=== PATIENT | male | born 1970 | race Caucasian/White ===

== ENCOUNTER 2021-10-05 12:14 | Outpatient (REF) | payer MEDICARE, SELFPAY ==
[2021-10-05 12:35] LABS: MANUAL DIFF FLAG NO
[2021-10-05 13:03] LABS: Basophils Absolute Auto 0.1 X10*3/uL (0.0-0.2); Basophils Percent Auto 0.9 % (0-2); Eosinophils Absolute Auto 0.2 X10*3/uL (0.0-0.4); Eosinophils Percent Auto 2.3 % (0-4); Hematocrit 45.4 % (42.0-52.0); Hemoglobin 15.2 g/dl (14.0-18.0); Imm Gran Abs Auto 0.04 X10*3/uL (0.00-0.03); Imm Gran Pct Auto 0.5 % (0.0-0.4); Lymphocytes Absolute Auto 2.1 X10*3/uL (1.2-4.9); Lymphocytes Percent Auto 23.6 % (20-40); Mean Corpuscular HGB Conc 33.5 g/dl (31.0-36.0); Mean Corpuscular Hemoglobin 27.4 pg (27.0-33.0); Mean Corpuscular Volume 81.9 fL (80.0-98.0); Mean Platelet Volume 8.5 fL (9.4-12.4); Monocytes Percent Auto 11.8 % (2-11); Neutrophils Absolute Auto 5.3 x10*3/uL (2.0-8.3); Neutrophils Percent Auto 60.9 % (45-73); Platelet Count 320 X10*3/uL (160-400); Red Blood Count 5.54 X10*6/uL (4.60-5.80); Red Cell Distribution Width 14.6 % (11.0-16.0); White Blood Count 8.7 X10*3/uL (4.8-10.8)
[2021-10-05 13:41] LABS: Alanine Aminotransferase 32 U/L (0-40); Albumin Level 4.4 g/dL (3.5-5.0); Alkaline Phosphatase 94 U/L (39-117); Anion Gap 14 (12-20); Aspartate Amino Transferase 24 U/L (5-37); Bilirubin Total 0.6 mg/dL (0.0-1.0); Blood Urea Nitrogen 14 mg/dL (9-16); Calcium 10.1 mg/dL (8.4-10.2); Carbon Dioxide 25 mmol/L (22-29); Chloride 100 mmol/L (96-108); Cholesterol 212 mg/dL; Estimated Glomerular Filt Rate > 60; Glucose Random 115 mg/dL (60-115); HDL Cholesterol 36 mg/dL; LDL Cholesterol Calculated 144 mg/dl; Potassium 4.7 mmol/L (3.3-5.1); Sodium 134 mmol/L (135-145); Total Protein 8.4 g/dL (6.5-8.0); Triglycerides 160 mg/dL
[2021-10-05 14:04] LABS: Free T4 (Free Thyroxine) 1.17 ng/dL (0.71-1.85)
[2021-10-06 12:11] LABS: Free Prostate Spec Ag 0.1 ng/mL; Percent Free Prostate Spec Ag 50 % (calc) (>25); Prostate Specific Ag Total 0.2 ng/mL (< OR = 4.0)
== END 2021-10-05 12:15 | disposition home or self-care (01) ==
LOC: HO.LAB 12:14
PROVIDERS: PCP Internal Medicine; Visit Provider Internal Medicine
DX: I25.10 Atherosclerotic heart disease of native coronary artery without angina pectoris (principal); I10 Essential (primary) hypertension; E78.00 Pure hypercholesterolemia, unspecified; M54.9 Dorsalgia, unspecified; R00.0 Tachycardia, unspecified; Z12.5 Encounter for screening for malignant neoplasm of prostate
CPT/HCPCS: 36415; 80053; 80061; 84154; 84439; 84443; 85025

== ENCOUNTER 2022-01-18 12:19 | Outpatient (REF) | payer MEDICARE, SELFPAY ==
[2022-01-18 13:53] LABS: Alanine Aminotransferase 23 U/L (0-40); Albumin Level 4.1 g/dL (3.5-5.0); Alkaline Phosphatase 112 U/L (39-117); Anion Gap 14 (12-20); Aspartate Amino Transferase 24 U/L (5-37); Bilirubin Total 0.6 mg/dL (0.0-1.0); Blood Urea Nitrogen 11 mg/dL (9-16); Calcium 9.8 mg/dL (8.4-10.2); Carbon Dioxide 24 mmol/L (22-29); Chloride 100 mmol/L (96-108); Cholesterol 160 mg/dL; Estimated Glomerular Filt Rate > 60; Glucose Fasting 120 mg/dL (60-99); HDL Cholesterol 35 mg/dL; LDL Cholesterol Calculated 98 mg/dl; Potassium 5.2 mmol/L (3.3-5.1); Sodium 133 mmol/L (135-145); Total Protein 8.2 g/dL (6.5-8.0); Triglycerides 137 mg/dL
== END 2022-01-18 12:20 | disposition home or self-care (01) ==
LOC: HO.LAB 12:19
PROVIDERS: PCP Internal Medicine; Visit Provider Internal Medicine
DX: I10 Essential (primary) hypertension (principal); I25.10 Atherosclerotic heart disease of native coronary artery without angina pectoris; E78.00 Pure hypercholesterolemia, unspecified
CPT/HCPCS: 36415; 80053; 80061

== ENCOUNTER 2022-04-04 12:03 | Outpatient (REF) | payer MEDICARE, SELFPAY ==
[2022-04-04 13:40] LABS: MANUAL DIFF FLAG NO
[2022-04-04 13:47] LABS: Basophils Absolute Auto 0.1 X10*3/uL (0.0-0.2); Basophils Percent Auto 0.8 % (0-2); Eosinophils Absolute Auto 0.1 X10*3/uL (0.0-0.4); Eosinophils Percent Auto 0.8 % (0-4); Hematocrit 46.7 % (42.0-52.0); Hemoglobin 15.2 g/dl (14.0-18.0); Imm Gran Abs Auto 0.03 X10*3/uL (0.00-0.03); Imm Gran Pct Auto 0.4 % (0.0-0.4); Lymphocytes Absolute Auto 1.6 X10*3/uL (1.2-4.9); Lymphocytes Percent Auto 22.8 % (20-40); Mean Corpuscular HGB Conc 32.5 g/dl (31.0-36.0); Mean Corpuscular Hemoglobin 26.8 pg (27.0-33.0); Mean Corpuscular Volume 82.2 fL (80.0-98.0); Monocytes Absolute Auto 0.7 X10*3/uL (0.1-1.2); Monocytes Percent Auto 10.3 % (2-11); Neutrophils Absolute Auto 4.7 x10*3/uL (2.0-8.3); Neutrophils Percent Auto 64.9 % (45-73); Platelet Count 297 X10*3/uL (160-400); Red Blood Count 5.68 X10*6/uL (4.60-5.80); Red Cell Distribution Width 14.4 % (11.0-16.0); White Blood Count 7.2 X10*3/uL (4.8-10.8)
[2022-04-04 14:10] LABS: Estimated Average Glucose 128 mg/dL; Hemoglobin A1c % 6.1 %
[2022-04-04 14:29] LABS: Alanine Aminotransferase 19 U/L (0-40); Albumin Level 4.4 g/dL (3.5-5.0); Alkaline Phosphatase 120 U/L (39-117); Anion Gap 17 (12-20); Aspartate Amino Transferase 18 U/L (5-37); Bilirubin Total 0.4 mg/dL (0.0-1.0); Blood Urea Nitrogen 9 mg/dL (9-16); C Reactive Protein 2.43 mg/dL (< or = 0.50); Calcium 9.7 mg/dL (8.4-10.2); Carbon Dioxide 24 mmol/L (22-29); Chloride 100 mmol/L (96-108); Estimated Glomerular Filt Rate > 60; Glucose Random 111 mg/dL (60-115); Lipase 50 U/L (8-78); Potassium 5.7 mmol/L (3.3-5.1); Sodium 135 mmol/L (135-145); Total Protein 8.4 g/dL (6.5-8.0)
== END 2022-04-04 12:04 | disposition home or self-care (01) ==
LOC: HO.10HDL 12:03
PROVIDERS: Visit Provider Internal Medicine
DX: R10.9 Unspecified abdominal pain (principal); K21.9 Gastro-esophageal reflux disease without esophagitis; R73.03 Prediabetes; I10 Essential (primary) hypertension; J44.9 Chronic obstructive pulmonary disease, unspecified; I25.10 Atherosclerotic heart disease of native coronary artery without angina pectoris
CPT/HCPCS: 36415; 80053; 82550; 83036; 83690; 85025; 86140

== ENCOUNTER 2022-04-06 11:05 | Outpatient (REF) | payer MEDICARE, SELFPAY ==
--- NOTE | ~2022-04-06 | FL_ITS ---
EXAMINATION: XR FLUOROSCOPY UPPER GI WITH AIR CLINICAL INFORMATION: Nausea, vomiting for 2 months. COMPARISON: None TECHNIQUE: Routine upper GI air-contrast study was performed in upright and lying position. FINDINGS: Following oral administration of thick barium and effervescent granules there is normal propagation of bolus from the oral cavity through the pharynx, esophagus into stomach without any evidence of obstruction, narrowing or stricture. The course, caliber and peristalsis of the stomach, duodenal bulb and the sweep is normal. The mucosal pattern of the stomach and the duodenum is normal. There is moderate gastroesophageal reflux into the midesophagus. Incidental finding of disc prosthesis at L4-L5 stabilized with bilateral L4 and L5 pedicular screws and interconnecting rods. The inferior ends of the rods and the L5 pedicle screws are not completely visualized on these images. FLUOROSCOPY TIME: 2.1 minutes DOSE AREA PRODUCT: 41.450 uGy-m2 (microgray-meter squared) FL/FL upper GI w air IMPRESSION: Moderate gastroesophageal reflux into the midesophagus without hiatal hernia.
== END 2022-04-06 11:06 | disposition home or self-care (01) ==
LOC: HO.XRAY 11:05
PROVIDERS: PCP Internal Medicine; Visit Provider Internal Medicine
DX: K21.9 Gastro-esophageal reflux disease without esophagitis (principal); R10.9 Unspecified abdominal pain
CPT/HCPCS: 74246

== ENCOUNTER 2022-08-30 12:04 | Outpatient (REF) | payer MEDICARE, SELFPAY ==
[2022-08-30 13:32] LABS: MANUAL DIFF FLAG NO
[2022-08-30 14:09] LABS: Basophils Absolute Auto 0.1 X10*3/uL (0.0-0.2); Basophils Percent Auto 0.9 % (0-2); Eosinophils Percent Auto 0.5 % (0-4); Hematocrit 45.7 % (42.0-52.0); Hemoglobin 15.1 g/dl (14.0-18.0); Imm Gran Abs Auto 0.02 X10*3/uL (0.00-0.03); Imm Gran Pct Auto 0.3 % (0.0-0.4); Lymphocytes Absolute Auto 1.5 X10*3/uL (1.2-4.9); Lymphocytes Percent Auto 22.4 % (20-40); Mean Corpuscular Hemoglobin 26.5 pg (27.0-33.0); Mean Corpuscular Volume 80.3 fL (80.0-98.0); Mean Platelet Volume 8.8 fL (9.4-12.4); Monocytes Absolute Auto 0.5 X10*3/uL (0.1-1.2); Monocytes Percent Auto 7.7 % (2-11); Neutrophils Absolute Auto 4.5 x10*3/uL (2.0-8.3); Neutrophils Percent Auto 68.2 % (45-73); Platelet Count 289 X10*3/uL (160-400); Red Blood Count 5.69 X10*6/uL (4.60-5.80); Red Cell Distribution Width 14.9 % (11.0-16.0); White Blood Count 6.5 X10*3/uL (4.8-10.8)
[2022-08-30 14:31] LABS: Alanine Aminotransferase 16 U/L (0-40); Albumin Level 4.2 g/dL (3.5-5.0); Alkaline Phosphatase 143 U/L (39-117); Anion Gap 16 (12-20); Aspartate Amino Transferase 18 U/L (5-37); Bilirubin Total 0.4 mg/dL (0.0-1.0); Blood Urea Nitrogen 9 mg/dL (9-16); Calcium 9.6 mg/dL (8.4-10.2); Carbon Dioxide 25 mmol/L (22-29); Chloride 101 mmol/L (96-108); Estimated Glomerular Filt Rate > 60; Glucose Random 115 mg/dL (60-115); Lipase 27 U/L (8-78); Potassium 4.5 mmol/L (3.3-5.1); Sodium 137 mmol/L (135-145)
[2022-08-30 14:38] LABS: Troponin-I High Sensitivity < 3.5 ng/L (<3.5-35.0)
[2022-09-01 13:23] LABS: CRP High Sensitivity >10.0 mg/L
== END 2022-08-30 12:05 | disposition home or self-care (01) ==
LOC: HO.10HDL 12:04
PROVIDERS: Visit Provider Internal Medicine
DX: I25.10 Atherosclerotic heart disease of native coronary artery without angina pectoris (principal); K21.9 Gastro-esophageal reflux disease without esophagitis; I10 Essential (primary) hypertension; J44.9 Chronic obstructive pulmonary disease, unspecified; R11.0 Nausea
CPT/HCPCS: 36415; 80053; 82550; 83690; 84484; 85025; 86141

== ENCOUNTER → 2022-09-11 14:43 | Outpatient (BNVA) | payer MEDICARE, SELFPAY | PROVIDERS: PCP Internal Medicine; Referring Provider Internal Medicine; Visit Provider Internal Medicine | DX: I25.10 Atherosclerotic heart disease of native coronary artery without angina pectoris (principal); I73.9 Peripheral vascular disease, unspecified; I10 Essential (primary) hypertension; F17.210 Nicotine dependence, cigarettes, uncomplicated; F11.20 Opioid dependence, uncomplicated; F14.20 Cocaine dependence, uncomplicated; Z95.5 Presence of coronary angioplasty implant and graft; Z98.890 Other specified postprocedural states | CPT/HCPCS: 93005; 99202 ==

== ENCOUNTER → 2022-09-20 12:47 | Outpatient (REF) | payer MEDICARE, SELFPAY ==
--- NOTE | 2022-09-20 12:50 | CA_ITS ---
Transthoracic Echocardiogram Patient (Last, First, Middle): Tushar Paredes E Gender: Male Date of : 1970 Age: 52 Procedure Date: 09/20/2022 Procedure Type: Transthoracic Echocardiogram Location: OP Height: 180.34 cm Weight: 96.16 kg BSA: 2.16 m2 Heart Rate: bpm BP: 130 / 88 mmHg Survey And Mapping Technician: TO Referring MD: Tono Cobb MD Symptoms: I25.10 - Atherosclerotic heart disease of [place] coronary artery without... Study Quality: Fair/No IV Access ECG Rhythm: Sinus Conclusions: - The left ventricular systolic function is normal. The calculated ejection fraction is 56% by biplane method. - No obvious valvular pathology seen on this study. Findings Left Ventricle Normal left ventricular cavity size. The left ventricular systolic function is normal. The calculated ejection fraction is 56% by biplane method. There is no evidence of regional wall motion abnormalities. Diastolic function is normal for age. Possible mild septal hypertrophy vs measurement error. Right Ventricle Normal right ventricular cavity size and systolic function. Atria Both atria are normal in size. Aortic Valve There is a normal trileaflet aortic valve. There is no aortic valve stenosis. There is no aortic valve regurgitation. Mitral Valve The mitral valve appears normal. There is no mitral valve regurgitation. There is no mitral valve stenosis. Pulmonic Valve The pulmonic valve is likely normal. Tricuspid Valve There is no tricuspid valve regurgitation. Tricuspid regurgitation envelope is inadequate for calculation of right ventricular systolic pressure. Great Vessels The asc aorta is normal in size. Venous The inferior vena cava is normal in size and collapses greater than 50% with inspiration. Pericardium/Pleural Prominent epicardial adipose tissue noted. No clear evidence of pericardial effusion. Prior Study Comparison No prior study available for comparison. Recommendations, Care & Conclusions No obvious valvular pathology seen on this study. Measurements 2D Linear Measurements IVSd: 1.09 0.6-0.9/0.6-1.0 cm LVIDd: 4.66 3.9-5.3/4.2-5.9 cm LVIDd Index: 2.16 2.4-3.2/2.2-3.1 cm/m2 LVIDs: 3.05 2.0-3.6 cm LVPWd: 0.75 0.7-1.1 cm LA Diam: 3.40 2.7-3.8/3.0-4.0 cm LAIDs Index: 1.57 1.5-2.3 cm/m2 LV Mass: 179.97 67-162/88-224 g LV Mass Index: 83.32 43-95/49-115 g/m2 LVOT Diam: 2.20 3.0+(-)1.3 cm 2D Systolic Function EF 4C: 53.10 >55% EF 2C: 57.50 >55% EF BiP: 55.60 >55% Mitral Valve MV Pk E: 0.57 MV PK A: 0.66 MV Decel Time: 231.00 E/A: 0.90 E'Lateral: 9.57 E'Medial: 6.31 E/E' Med: 9.00 E/E' Lat: 5.90 PHT: 68.00 MVA PHT: 3.24 Decel Millard: 2.44 Aortic Valve AoV Pk Carroll: 1.41 AoV Mn Carroll: 0.94 AoV VTI: 0.24 AoV Pk Grad: 8.00 Aov Mn Grad: 4.00 VENICE Cont.VTI: 2.96 LVOT LVOT Pk Carroll: 1.22 LVOT Mn Carroll: 0.76 LVOT VTI: 0.19 LVOT Pk Grad: 6.00 LVOT Mn Grad: 3.00 LVOT Diam: 2.20 LVOT Area: 3.80 Diastolic Function MV Pk E: 0.57 MV Pk A: 0.66 E/A: 0.90 E'Medial: 6.31 E/E' Med: 9.00 E' Laterial: 9.57 E/E' Lat: 5.90 Right Ventricle TAPSE (mm): 18.90 TVS' Carroll: 11.30 Tricuspid Valve RA Press: 3.00 Great Vessels Aorta Sinus of Valsalva: 3.58 2.0-3.5 cm Ao Asc: 2.90 2.1-3.4 cm Updated in Other Vendor System with Status of Final Tono Cobb MD electronically signed on 09/22/2022 11:44:15 AM with status of Final
== END ==
LOC: HO.CARD 12:47
PROVIDERS: PCP Internal Medicine; Visit Provider Internal Medicine
DX: I25.10 Atherosclerotic heart disease of native coronary artery without angina pectoris (principal)
CPT/HCPCS: 93306

== ENCOUNTER 2023-02-14 12:26 | Outpatient (REF) | payer MEDICARE, SELFPAY ==
[2023-02-14 13:29] LABS: MANUAL DIFF FLAG NO
[2023-02-14 13:42] LABS: Basophils Absolute Auto 0.1 X10*3/uL (0.0-0.2); Basophils Percent Auto 1.4 % (0-2); Eosinophils Absolute Auto 0.1 X10*3/uL (0.0-0.4); Eosinophils Percent Auto 2.2 % (0-4); Hematocrit 45.1 % (42.0-52.0); Hemoglobin 14.8 g/dl (14.0-18.0); Imm Gran Abs Auto 0.02 X10*3/uL (0.00-0.03); Imm Gran Pct Auto 0.3 % (0.0-0.4); Lymphocytes Absolute Auto 1.7 X10*3/uL (1.2-4.9); Lymphocytes Percent Auto 26.4 % (20-40); Mean Corpuscular HGB Conc 32.8 g/dl (31.0-36.0); Mean Corpuscular Hemoglobin 26.7 pg (27.0-33.0); Mean Corpuscular Volume 81.4 fL (80.0-98.0); Monocytes Absolute Auto 0.4 X10*3/uL (0.1-1.2); Monocytes Percent Auto 6.5 % (2-11); Neutrophils Percent Auto 63.2 % (45-73); Platelet Count 292 X10*3/uL (160-400); Red Blood Count 5.54 X10*6/uL (4.60-5.80); Red Cell Distribution Width 15.1 % (11.0-16.0); White Blood Count 6.3 X10*3/uL (4.8-10.8)
[2023-02-14 13:45] LABS: Estimated Average Glucose 120 mg/dL; Hemoglobin A1c % 5.8 %
[2023-02-14 13:58] LABS: Alanine Aminotransferase 15 U/L (0-40); Albumin Level 4.2 g/dL (3.5-5.0); Alkaline Phosphatase 132 U/L (39-117); Anion Gap 11 (12-20); Aspartate Amino Transferase 14 U/L (5-37); Bilirubin Total 0.4 mg/dL (0.0-1.0); Blood Urea Nitrogen 8 mg/dL (9-16); C Reactive Protein 1.71 mg/dL (< or = 0.50); Calcium 9.1 mg/dL (8.4-10.2); Carbon Dioxide 26 mmol/L (22-29); Chloride 104 mmol/L (96-108); Cholesterol 143 mg/dL; Estimated Glomerular Filt Rate > 60; Glucose Random 113 mg/dL (60-115); Lipase 25 U/L (8-78); Potassium 4.1 mmol/L (3.3-5.1); Sodium 137 mmol/L (135-145); Total Protein 8.5 g/dL (6.5-8.0)
[2023-02-14 14:08] LABS: Prostate Specific Antigen 0.29 ng/mL (<0.05-4.0)
== END 2023-02-14 12:27 | disposition home or self-care (01) ==
LOC: HO.10HDL 12:26
PROVIDERS: Visit Provider Internal Medicine
DX: K21.9 Gastro-esophageal reflux disease without esophagitis (principal); I25.10 Atherosclerotic heart disease of native coronary artery without angina pectoris; E78.00 Pure hypercholesterolemia, unspecified; I10 Essential (primary) hypertension; R73.03 Prediabetes; Z12.5 Encounter for screening for malignant neoplasm of prostate
CPT/HCPCS: 36415; 80053; 82465; 83036; 83690; 84153; 85025; 86140

== ENCOUNTER 2023-06-19 08:01 | Outpatient (REF) | payer MEDICARE, SELFPAY ==
--- NOTE | ~2023-06-19 | CT_ITS ---
EXAMINATION: CT ABDOMEN AND PELVIS WITHOUT CONTRAST CLINICAL INFORMATION: Nausea and vomiting COMPARISON: None available. TECHNIQUE: Multidetector volumetric imaging was performed from the superior aspect of the liver through the pubic symphysis. Sagittal and coronal reformatted images were obtained on the technologist's workstation. This CT examination was performed using dose optimization techniques as appropriate, variously including the following: *Automated exposure control *Adjustment of mA and/or kV according to patient size (this includes techniques or standardized protocols for targeted exams where dose is matched to indication/reason for exam; i.e. extremities or head) *Use of iterative reconstruction technique DLP: 593 mGy-cm FINDINGS: LUNG BASES: 2 mm right lower lobe nodule axial image 4 series 3 LIVER, GALLBLADDER, AND BILIARY TREE: The liver is normal in size, shape, and attenuation. No focal hepatic lesion or biliary ductal dilatation is present. The gallbladder is unremarkable with no evidence of radiopaque gallstones, gallbladder wall thickening, or obvious pericholecystic inflammatory changes. PANCREAS: Lobulated contour of the uncinate process of the head of the pancreas against the second portion of the duodenum. Small scattered calcifications in the pancreas. The main pancreatic duct does not appear dilated. SPLEEN: Unremarkable. ADRENAL GLANDS: Unremarkable. KIDNEYS AND URETERS: The kidneys are normal in size, shape, and attenuation. No hydronephrosis, hydroureter, or calculi seen. No perinephric stranding. BLADDER: Unremarkable. GASTROINTESTINAL TRACT: Stomach and small bowel difficult to evaluate. There is a food in the stomach. There are multiple filling defects in the small bowel probably representing fluid as well. Moderate stool burden. Colon otherwise normal. Normal appendix. No ascites. ABDOMINAL WALL: No significant hernia is appreciated. LYMPH NODES: Normal. VASCULAR: Right external iliac artery stent. Mild atherosclerotic disease. No aneurysm. PELVIC VISCERA: Unremarkable. OSSEOUS STRUCTURES: Postsurgical change with posterior fusion hardware from L4 to L5. Probable Schmorl's node in the inferior endplate of the L1 vertebral body. Degenerative changes of the spine and hip joints. CT/CT abdomen pelvis wo IV con IMPRESSION: Lobulated contour of the uncinate process of the head of the pancreas adjacent to the second portion of the duodenum. It is difficult to exclude a mass. Follow-up contrast-enhanced imaging of the pancreas recommended. Stomach and small bowel difficult to evaluate. There is food in the stomach. There are multiple filling defects in the small bowel probably representing food as well. 4 mm right lower lobe pulmonary nodule. According to the UPDATED 2017 Fleischner Society recommendations, the advised follow-up imaging for less than 6 mm solid nodule: Low risk, no chest CT follow-up and high risk, optional chest CT follow-up in one year. Fleischner guidelines were followed.
[2023-06-19] MEDS: Barium Sulfate Oral (Mocha) 450 ML ORAL.SUSP 900 ML PO (12:26)
== END 2023-06-19 08:02 | disposition home or self-care (01) ==
LOC: HO.CT 08:01
PROVIDERS: PCP Internal Medicine; Visit Provider Internal Medicine
DX: K21.00 Gastro-esophageal reflux disease with esophagitis, without bleeding (principal); R11.2 Nausea with vomiting, unspecified
CPT/HCPCS: 74176

== ENCOUNTER 2023-09-17 08:52 | Outpatient (AMB) | payer MEDICARE, SELFPAY ==
[2023-09-17 08:57] VITALS: BP 130/82; PULSE 85; BMI 29.6
--- NOTE | 2023-09-17 08:57 | MHC.OFFVIS ---
Intake Vital Signs 09/17/23 08:57 Height 5 ft 11 in Weight 212 lb 8.41 oz BMI 29.6 BP 130/82 Blood Pressure Location Rt brachial Position Sitting Pulse 85 Pulse Source Pulse Oximeter Intake Visit Reasons: chest pain/[facility] Allergies metoprolol Adverse Reaction (Severe, Verified 09/17/23 09:01) Chest tightness Medication List - Last Reconciled 09/17/23 by Kasey Ye, DEQUAN-C albuterol sulfate 90 mcg/actuation inhalation aspirin 81 mg PO DAILY atorvastatin 40 mg PO DAILY budesonide-formoterol 160-4.5 mcg/actuation (Symbicort) inhalation lisinopril 20 mg PO BID methadone 50 mg PO DAILY pantoprazole 40 mg PO BID sucralfate 1 g PO TID HPI chest pain/[facility] HPI Details Tushar is a 53-year-old male with past medical history of hyperlipidemia, peripheral vascular disease, smoking, prior cocaine use, anterior STEMI 2006 with mid LAD stent who was recently seen at [facility] with report of chest discomfort and he ruled out for ACS. Today he reports that he has been getting some various discomfort in his chest region. It feels like a chest tightness at times and other times he gets sharp pains. His symptoms occur randomly. He does have shortness of breath with activity which he relates to his emphysema. He continues to smoke a half a pack of cigarettes per day. He denies lightheadedness, presyncope, syncope, falls. No PND, orthopnea or edema. He has chronic back pain and states that he is disabled. He says he is taking his medications as directed. [facility] Medical History Essential hypertension Atherosclerotic cardiovascular disease Surgical History History of surgery on arm Hx of eye surgery History of back surgery Rotator cuff arthropathy of left shoulder History of cardiac cath Family History Mother Heart attack Father Emphysema lung Cirrhosis Sister Heart disease Brother HTN (hypertension) Social History Alcohol intake: former Year quit: 2021 Patient Tobacco Use Status: Current everyday Tobacco user Cigarette Packs Per Day: 0.5 Cigarettes Per Day: 10 Years Smoked: 40 +/- Substance Use Type: Crack/Cocaine and Heroin Review of Systems Const All systems reviewed & are unremarkable except as noted in HPI and below Reports fatigue ENT Denies dizziness Card Reports chest pain, Reports chest pain at rest, Denies chest pain with activity, Denies rapid heart rate, Denies pedal edema, Denies edema, Denies leg edema, Denies lightheadedness, Denies palpitations, Reports dyspnea, Reports dyspnea on exertion and Denies orthopnea Resp Denies cough, Reports dyspnea and Reports dyspnea on exertion GI Denies hematochezia and Denies change in stool character Musc Denies abnormal gait, Reports limited range of motion, Denies muscle cramps, Denies muscle weakness, Denies numbness, Denies radiating pain into limb, Denies stiffness and Denies tingling Neuro Denies abnormal gait, Denies dizziness, Denies numbness and Denies tingling Endo Reports fatigue and Denies palpitations Physical Exam Vital Signs: Last Vital Signs Pulse 85 09/17/23 08:57 BP 130/82 09/17/23 08:57 BMI result Body Mass Index 29.6 Const General: cooperative, healthy appearing, comfortable and no acute distress Orientation/consciousness: patient oriented x3 Neck Neck: Yes normal visual inspection and Yes no JVD Resp Effort & Inspection: normal respiratory effort Auscultation: clear to auscultation bilaterally, no crackles, no rales, no rhonchi and no wheezes Cardio Jugular venous distension: no JVD Rate: regular rate Rhythm: regular rhythm Heart sounds: S1 normal heart sound present, S2 normal heart sound present, no murmurs and no rubs Neuro General: patient oriented x3 Extrem General: Yes normal to inspection, No no pedal edema and No calf tenderness Psych Appearance: grossly normal Mental Status: mental status grossly normal Speech and movement: Normal speech and movement present Assessment & Plan Assessment & Plan (1) Chest discomfort: Code(s): R07.89 - Other chest pain Plan: Reports of chest discomfort, tightness as well as sharp pains occurring at different times, nonexertional. He has been to [facility] for evaluation. We have records for 1 ER visit and he ruled out for ACS. He tells me he has actually been to the ER on 4 occasions in the last 2 months for his chest symptoms and says that each time they tell him his heart is fine. He denies any chest discomfort today. Pulse is regular on examination. Last echocardiogram done 09/20/2022 showed EF 56%, no valve abnormalities and no regional wall motion abnormalities. He has a known history of CAD with LAD stent. Will update a pharmacological nuclear stress test to evaluate for any ischemia. He is not able to walk on the treadmill due to shortness of breath with activity and peripheral vascular disease. Cardiology follow-up in 1 month, sooner if needed. Signs and symptoms of angina reviewed with him in detail. Emergency care if needed for symptoms. Continue aspirin, atorvastatin and lisinopril. He has not on beta-juana as he had used cocaine in the past. He tells me he is currently not using cocaine. (2) Atherosclerotic cardiovascular disease: Code(s): I25.10 - Atherosclerotic heart disease of [place] coronary artery without angina pectoris Plan: History of anterior STEMI 2006. Cardiac catheterization at that time showed mid LAD 90% stenosis, distal LAD diffuse disease, 60% stenosis, left circumflex and RCA normal, BMS was placed to the LAD. He had been following with Dr. Edmond hua for cardiology. On last few years he is changed over to our office. He is now reporting episodes of chest discomfort as described above. Will obtain nuclear stress test. (3) Essential hypertension: Code(s): I10 - Essential (primary) hypertension Plan: Normal range at present. Labs done 02/14/2023 showed potassium 4.1, creatinine 0.81. Continue on current lisinopril. (4) Peripheral vascular disease: Code(s): I73.9 - Peripheral vascular disease, unspecified Plan: History of peripheral vascular disease. Notes indicate history of right iliac stents. Patient tells me that no one is following his stents at this time. He denies any symptom of claudication. He has been taking his aspirin and atorvastatin. Will check a lower extremity arterial ultrasound to evaluate for stent patency, degree of peripheral vascular disease. (5) Smoking: Code(s): F17.200 - Nicotine dependence, unspecified, uncomplicated Plan: Continues to smoke half a pack of cigarettes per day. Need for smoking cessation reviewed with him. He states full understanding and has been working on quitting by slowly reducing his smoking amount. (6) Hyperlipidemia: Code(s): E78.5 - Hyperlipidemia, unspecified Plan: [place] LDL goal less than 70 in patient with CAD and peripheral vascular disease. Labs done on 01/18/2022 had shown LDL 98. He is currently on atorvastatin 40 mg daily. Will check a fasting lipid and CMP. May need further increase in atorvastatin dose. (7) Hospital discharge follow-up: Code(s): Z09 - Encounter for follow-up examination after completed treatment for conditions other than malignant neoplasm Plan: [facility] evaluation. Plan Time spent on chart review, documentation, interview and assessment Orders: Orders CA lexiscan stress w beatrice Today I25.10 - Atherosclerotic heart disease of [place] coronary artery without angina pectoris, R07.89 - Other chest pain US arterial duplex LE BI Today F17.200 - Nicotine dependence, unspecified, uncomplicated, I73.9 - Peripheral vascular disease, unspecified Lipid Panel Today I25.10 - Atherosclerotic heart disease of [place] coronary artery without angina pectoris NM cardiolite stress test Today I25.10 - Atherosclerotic heart disease of [place] coronary artery without angina pectoris, R07.89 - Other chest pain Comprehensive Met. Panel Today I25.10 - Atherosclerotic heart disease of [place] coronary artery without angina pectoris Coding Level of Care Code Est Pt Level 4 (83718) Diagnoses Chest discomfort R07.89 Atherosclerotic cardiovascular disease I25.10 Essential hypertension I10 Peripheral vascular disease I73.9 Smoking F17.200 Hyperlipidemia E78.5 Hospital discharge follow-up Z09 Time Spent (min) 30
== END 2023-09-17 09:25 | disposition home or self-care (01) ==
PROVIDERS: PCP Internal Medicine; Visit Provider Nurse Practitioner Family
DX: R07.89 Other chest pain (principal); I25.10 Atherosclerotic heart disease of native coronary artery without angina pectoris; I10 Essential (primary) hypertension; I73.9 Peripheral vascular disease, unspecified; F17.200 Nicotine dependence, unspecified, uncomplicated; E78.5 Hyperlipidemia, unspecified; Z09 Encounter for follow-up examination after completed treatment for conditions other than malignant neoplasm
CPT/HCPCS: 99214

== ENCOUNTER → 2023-09-17 08:52 | Outpatient (BNVA) | payer MEDICARE, SELFPAY | PROVIDERS: PCP Internal Medicine; Visit Provider Nurse Practitioner Family | DX: R07.89 Other chest pain (principal); I25.10 Atherosclerotic heart disease of native coronary artery without angina pectoris; I10 Essential (primary) hypertension; I73.9 Peripheral vascular disease, unspecified; E78.5 Hyperlipidemia, unspecified; F17.210 Nicotine dependence, cigarettes, uncomplicated; Z79.82 Long term (current) use of aspirin; Z79.899 Other long term (current) drug therapy | CPT/HCPCS: 99212 ==

== ENCOUNTER 2023-10-24 12:42 | Outpatient (REF) | payer MEDICARE, SELFPAY ==
--- NOTE | ~2023-10-24 | US_ITS ---
EXAMINATION: US-BILAT LOW EXTR ARTERIAL DOP CLINICAL INFORMATION: Peripheral vascular disease, unspecified COMPARISON: CT abdomen and pelvis 06/19/2023 TECHNIQUE: Real-time ultrasound and Doppler techniques (integrating B-mode 2-D vascular images, Doppler spectral analysis and color flow Doppler imaging) were utilized to interrogate the lower extremities. FINDINGS: There are normal velocities and triphasic waveforms in the bilateral common femoral arteries, proximal profunda femoral arteries, SFA, popliteal artery and posterior tibial arteries. No evidence of stenosis by velocity or waveform criteria. ADDITIONAL FINDINGS: None. US/US arterial duplex LE BI IMPRESSION: Normal velocities and triphasic waveforms in the bilateral lower extremity arterial systems, no evidence of a hemodynamically significant stenosis by velocity or waveform criteria.
== END 2023-10-24 12:43 | disposition home or self-care (01) ==
LOC: HO.US 12:42
PROVIDERS: PCP Internal Medicine; Visit Provider Nurse Practitioner Family
DX: I73.9 Peripheral vascular disease, unspecified (principal); F17.200 Nicotine dependence, unspecified, uncomplicated
CPT/HCPCS: 93925

== ENCOUNTER 2025-05-25 13:08 | Outpatient (AMB) | payer MEDICARE, SELFPAY ==
--- OUTSIDE RECORDS SUMMARY | 2024-04-07 05:50 | XMS_ITS ---
Author Organization [facility] Address [address] [place] [id number] Care Team Providers Care Relief Docking Master Name Role Phone Braden (RETIRED) Erwin CORDOBA Primary Care Provide Brien Lopez [phone] REASON FOR VISIT Patient presents today for a COLON SCREENING Encounters Encounter Location Date Provider Diagnosis [facility] [address] [place] [id number] 04/07/2024 Brien Zarate Plan Of Treatment No Information Progress Notes * JOEY MELENDEZISDOB:1970 (55 yo M)Acc No.[id number]:04/07/2024 Progress Notes Patient: LETTY MCCLAIN Provider: Yosef Zarate MD :1970 A ge:54 Y S ex:Male Date:04/07/2024 Address:[address] [place] [id number] Pcp:Erwin Feliciano (RETIRED )MD Subjective: * Chief Complaints: * 1 . Patient presents today for a COLON SCREENING. * Medical History: Objective: * Vitals: Assessment: Plan: * Treatment: * * The named appointment provid er may or may not be the originator of this progress note, and it is not deemed complete until electronically signed by the appointment provider. Sign off status: Pending * Provider: Yosef Zarate MD Date: 04/07/2024 Generated for Debbie niño/Stewart/Bijanitting on: 05/25/2025 02:20 PM EDT
--- NOTE | 2025-05-25 12:45 | MHC.PC.OV ---
Vital Signs 05/25/25 13:14 Height 5 ft 11 in Weight 204 lb BMI 28.4 BP 138/78 Blood Pressure Location Rt brachial Position Sitting Respiration 18 Pulse 85 Pulse Source Pulse Oximeter Temp 98 F Temp Source Temporal Artery Scan Pulse Oximetry (%) 95 Oxygen Delivery Method Room Air Intake Visit Reasons: f/u CV issues & Pancreas spot -Croke pt Open End Spinning Operator Required: No Accompanied by: Self / Same As Patient Allergies metoprolol Adverse Reaction (Severe, Verified 05/25/25 12:46) Chest tightness Tobacco use date assessed: 05/25/25 Dental Screening Dental Screen Date: 05/25/25 Did you have a dental visit in the last 12 months?: No Did you have a dental problem in the last 6 months where you did not have access to dental care?: No Was dental information given to patient?: Patient has dentist HPI HPI Comments History of Present Illness Details The patient is a 55-year-old male presenting with concerns about a pancreatic lesion and management of chronic health conditions. He reports a history of a lesion detected on his pancreas approximately two years ago during a visit to an emergency department, at which time he was advised to have further evaluation. Unfortunately, no follow-up was conducted by his previous physician. The patient has experienced weight loss without attempting to do so, having previously weighed 218-220 pounds, now down to 204 pounds. He denies any intentional efforts at weight reduction. Additionally, he reports nausea and morning vomiting addressed with pantoprazole and sucralfate, but currently lacks these medications. He has a history of essential hypertension, hyperlipidemia, and coronary artery disease, previously experiencing a myocardial infarction requiring a stent placement. He remains on medications to manage these conditions, including atorvastatin, lisinopril, and aspirin. In addition, he has emphysema managed with albuterol and Symbicort, and a history of tobacco use for 30+ years. The patient also reports chronic back issues post-surgical intervention for spinal disc herniation, resulting in numbness and paresthesia in the leg. He describes persistent pain and requests further interventional treatment, noting difficulty accessing records from his previous care. Medical History: - Gastroesophageal Reflux Disease - Pancreatic Lesion - Essential Hypertension - Hyperlipidemia - Coronary Artery Disease with Stent Placement - Emphysema - Chronic Back Pain due to Spinal Disc Herniation - Peripheral Artery Disease - Methadone Maintenance Surgical History: - Back Surgery: Removal and fusion of two discs - Rotator Cuff Surgery - Coronary Stent Placement - Peripheral Arterial Stent Placement Medications: - Atorvastatin 40 mg for hyperlipidemia - Lisinopril 20 mg BID for hypertension - Aspirin for coronary artery disease - Methadone 60 mg daily for maintenance - Pantoprazole for gastroesophageal reflux - Sucralfate for gastroesophageal reflux - Albuterol for emphysema - Symbicort for emphysema Family History: - Diabetes mellitus in mother - Heart disease on mother's side Social History: - Previously smoked two packs/day for over 30 years; currently smokes one cigarette daily, aiming to quit - Does not consume alcohol or recreational drugs - Attends methadone clinic weekly [facility] Medical History (Updated 05/25/25 @ 13:34 by Byron Herzog MD) Opioid use disorder in remission Lumbar stenosis Chronic GERD Mass of head of pancreas Essential hypertension Atherosclerotic cardiovascular disease Surgical History History of surgery on arm Hx of eye surgery History of back surgery Rotator cuff arthropathy of left shoulder History of cardiac cath Family History Mother Heart attack Father Emphysema lung Cirrhosis Sister Heart disease Brother HTN (hypertension) Social History Housing: Apartment Alcohol intake: former Year quit: 2021 Patient Tobacco Use Status: Current everyday Tobacco user Cigarette Packs Per Day: 0.5 Cigarettes Per Day: 10 Years Smoked: 40 +/- e-Cigarette/Vaping Use: Never Used Substance Use Type: Crack/Cocaine and Heroin service: No Current occupational status: disabled Questionnaire PHQ-9 Over the last 2 weeks, how often have you been bothered by any of the following problems? 1. Little interest or pleasure in doing things: not at all 2. Feeling down, depressed, or hopeless: not at all 3. Trouble falling or staying asleep, or sleeping too much: not at all 4. Feeling tired or having little energy: not at all 5. Poor appetite or overeating: not at all 6. Feeling bad about yourself - or that you are a failure or have let yourself or your family down: not at all 7. Trouble concentrating on things, such as reading the newspaper or watching television: not at all 8. Moving or speaking so slowly that other people could have noticed. Or the opposite - being so fidgety or restless that you have been moving around a lot more than usual: not at all 9. Thoughts that you would be better off or of hurting yourself in some way: not at all Total score: 0 Depression Screening Interpretation: Negative Depression Screening Done: Yes 31234 - PHQ-9 Billing: Yes Source: Developed by Drs. Brien Maynard, Kristina Zayas, Wesley Garduno and colleagues, with an educational maki from [employer]. Thrive Questionnaire Date Thrive assessed: 05/25/25 I am a: Patient What is your living situation today?: I have a steady place to live Within the past 12 months, did the food you bought not last and you didn't have the money to get more?: Never true Within the past 12 months, did you worry whether your food would run out before you got money to buy more?: Never true Do you have trouble paying for medicines?: No Do you have trouble getting transportation to medical appointments?: No Do you have trouble paying your heating and electricity bill?: No Do you have trouble taking care of your child, family member or friend?: No Do you have trouble with day-to-day activities such as bathing, preparing meals, shopping, managing finances, etc.?: No Are you currently unemployed and looking for a job?: No Are you interested in more education?: No THRIVE Score: 0 AUDIT C Alcohol Use Questionnaire (AUDIT-C) 1. How often do you have a drink containing alcohol?: Never 3. How often do you have six or more drinks on one occasion?: Never Total Score: 0 Score Reviewed/Action Taken: Yes JUSTYNA-7 AMB Questionnaire JUSTYNA-7 Date JUSTYNA - 7 assessed: 05/25/25 Feeling nervous, anxious, or on edge: 0 = Not at all Not being able to stop or control worryin = Not at all Worrying too much about different things: 0 = Not at all Trouble relaxin = Not at all Being so restless that it is hard to sit still: 0 = Not at all Becoming easily annoyed or irritable: 0 = Not at all Feeling afraid as if something awful might happen: 0 = Not at all Total JUSTYNA-7 score (0-4 normal; 5-9 mild; 10-14 moderate; 15-21 severe): 0 Source: Developed by Drs. Brien Maynard, Kristina Zayas, Wesley Garduno and colleagues, with an educational maki from [employer]. JUSTYNA-7 Assessment Billing JUSTYNA-7 Assessment Tool: UJSTYNA-7 Assessment 97787 Review of Systems Const Details: - Constitutional: Denies fatigue. - Gastrointestinal: Reports nausea, morning vomiting. Denies dysphagia. - General: Reports unexplained weight loss. - Respiratory: Reports difficulty breathing due to emphysema. - Cardiovascular: Reports history of myocardial infarction, managed with stents. - Musculoskeletal: Reports chronic back pain, numbness, and paresthesia in leg. - Neurological: Reports occasional dizziness. - Integumentary: Skin intact without rashes. - Psychiatric: Able to attend methadone clinic; denies substance abuse. All systems reviewed & are unremarkable except as reviewed in HPI and above Physical exam (Primary Care) Vital Signs: Last Vital Signs Temp 98 F 05/25/25 13:14 Pulse 85 05/25/25 13:14 Resp 18 05/25/25 13:14 BP 138/78 05/25/25 13:14 Pulse Ox 95 05/25/25 13:14 Oxygen Delivery Method Room Air 05/25/25 13:14 BMI result Body Mass Index 28.4 Tobacco/Smoking Status: Tobacco use Status Tobacco use date assessed 05/25/25 05/25/25 12:47 Patient Tobacco Use Status Current everyday Tobacco 05/25/25 12:47 e-Cigarette/Vaping Use Never Used 05/25/25 13:16 Are you ready to quit: Yes Tobacco cessation counseling provided: Yes Relapse Prevention: discussed the importance of a supportive environment, discussed extending NRT and weight gain after smoking is common Number of minutes spent counselin CPT code: 51183 - 4-10 Minutes Depression Screening Interpretation: Negative Const Other: General: Alert and oriented, Well nourished, No acute distress, Reports unintentional weight loss. Eye: Pupils are equal, round and reactive to light, Intact accommodation, Extraocular movements are intact, Normal conjunctiva, Vision unchanged. HENT: Normocephalic, Atraumatic, Tympanic membranes are clear, Normal hearing, Oral mucosa is moist, No pharyngeal erythema, Ear canals patent. Respiratory: Lungs CTA bilaterally, No wheeze, Respirations are non-labored, History of emphysema. Cardiovascular: Regular rate, Regular rhythm, S1 auscultated, S2 auscultated, No murmur, Good pulses equal in all extremities, Normal peripheral perfusion, No edema, History of heart attack and stent placement. Gastrointestinal: Soft, Non-tender, Non-distended, Normal bowel sounds, No organomegaly, Reports nausea and vomiting, Lesion on pancreas noted. Musculoskeletal: Normal range of motion, Normal strength, No tenderness, No swelling, No deformity, Normal gait, History of back surgery with disc removal and fusion, Reports leg numbness and pain. Integumentary: Warm, Dry, [place], Intact. Neurologic: Alert, Oriented, Normal sensory, Normal motor function, No focal defects, Cranial Nerves II-XII are grossly intact, Normal deep tendon reflexes, Reports leg numbness and pain. Psychiatric: Cooperative, Appropriate mood & affect, Normal judgment. Coding Level of Care Code New Pt Level 5 (65782) Diagnoses Essential hypertension I10 Atherosclerotic cardiovascular disease I25.10 Other hyperlipidemia E78.49 Hyperlipidemia type: other hyperlipidemia Cocaine abuse F14.10 Peripheral vascular disease I73.9 Mass of head of pancreas K86.89 Chronic GERD K21.9 Spinal stenosis of lumbar region, unspecified whether neurogenic claudication present M48.061 Neurogenic claudication status: unspecified Smoking F17.200 Opioid use disorder in remission F11.91 Additional Codes PHQ-9 - 65450 - PHQ-9 Billing: Yes ([id number]) JUSTYNA-7 Assessment Billing - JUSTYNA-7 Assessment Tool: JUSTYNA-7 Assessment 82749 ([id number]) Vital Signs *Quality* - CPT code: 82665 - 4-10 Minutes ([id number]) Assessment & Plan Assessment & Plan (1) Essential hypertension: Comment: - Continue lisinopril regimen for blood pressure management. - Monitor blood pressure during follow-ups. Code(s): I10 - Essential (primary) hypertension Category: Medical (2) Atherosclerotic cardiovascular disease: Comment: - Continue aspirin therapy. - Recommended stress test to evaluate current cardiac status per cardiology and advised to contact cardiology Code(s): I25.10 - Atherosclerotic heart disease of [place] coronary artery without angina pectoris Category: Medical (3) Hyperlipidemia: Comment: - Continue atorvastatin for lipid management. - Plan for lipid panel today and re-evaluate Code(s): E78.5 - Hyperlipidemia, unspecified Category: Medical Qualifiers: Hyperlipidemia type: other hyperlipidemia Qualified Code(s): E78.49 - Other hyperlipidemia (4) Cocaine abuse: Comment: - Continue participation in methadone program. - Monitor and reassess methadone levels as necessary. Code(s): F14.10 - Cocaine abuse, uncomplicated Category: Medical (5) Peripheral vascular disease: Comment: - Continue statin - No acute symptoms at this time, recommended continuing monitoring and smoking cessaiton Code(s): I73.9 - Peripheral vascular disease, unspecified Category: Medical (6) Mass of head of pancreas: Comment: Lobulated contour of the uncinate process of the head of the pancreas adjacent to the second portion of the duodenum. - Per CT Scan from 2022 - Recommended CT scan with contrast to further evaluate the pancreatic lesion. (Ordered) - Referral to a fire captain marine for potential biopsy and further investigation. Code(s): K86.89 - Other specified diseases of pancreas Category: Medical (7) Chronic GERD: Comment: - Reinstitution of pantoprazole and sucralfate discussed to manage symptoms of nausea and reflux. - Gastroenterology referral initiated for ongoing care and evaluation. Code(s): K21.9 - Gastro-esophageal reflux disease without esophagitis Category: Medical (8) Lumbar stenosis: Comment: - Advised retrieval of prior intervention records to resume interventional treatment. - Managed conservatively with possible referral to pain management clinic or spine clinic Code(s): M48.061 - Spinal stenosis, lumbar region without neurogenic claudication Category: Medical Qualifiers: Neurogenic claudication status: unspecified Qualified Code(s): M48.061 - Spinal stenosis, lumbar region without neurogenic claudication (9) Smoking: Comment: 30PPD - Refer for lung cancer screening Code(s): F17.200 - Nicotine dependence, unspecified, uncomplicated Category: Social Hx (10) Opioid use disorder in remission: Comment: - Prior opiate use and now currently on methadone 60 Code(s): F11.91 - Opioid use, unspecified, in remission Category: Medical Plan: Health maintenance: - Strong advisement on complete smoking cessation due to emphysema risk. - Lung cancer screening via CT scan scheduled due to history of smoking. - Client Integration Manager referral for detailed evaluation and management of pancreatic lesion. - Laboratory work-up inclusive of lipid profile, electrolytes, glucose, thyroid function, hepatitis, HIV, and syphilis. Patient was informed and verbally consented to the use of an ambient scribe for clinic note documentation during this visit. Plan During the consultation, I discussed multiple concerns with the patient, including the management of a possible pancreatic lesion that requires further imaging and gastroenterology evaluation. I emphasized the risks of smoking, especially in the presence of emphysema, and strongly advised the patient to quit smoking entirely. I have arranged for lung cancer screening due to the patient's extensive smoking history. A comprehensive series of labs have been ordered to evaluate cardiovascular and metabolic risks. I will refer the patient for a gastroenterology consultation to address nausea and pancreatic issues, and a stress test will be conducted due to cardiac history. The patient was informed of the necessity of obtaining past records to manage chronic back issues adequately, with potential referral to pain management. Patient education on the need to adhere to methadone maintenance was provided. Orders: Orders Hepatitis A,B,C Profile Today Z76.89 - Persons encountering health services in other specified circumstances Lipid Panel Today Z76.89 - Persons encountering health services in other specified circumstances TSH reflex Free T4 Today Z76.89 - Persons encountering health services in other specified circumstances Vitamin D 25-OH Total Today Z76.89 - Persons encountering health services in other specified circumstances Complete Blood Count Auto Diff Today Z76.89 - Persons encountering health services in other specified circumstances Comprehensive Met. Panel Today Z76.89 - Persons encountering health services in other specified circumstances Hemoglobin A1c Today Z76.89 - Persons encountering health services in other specified circumstances HIV Ab/Ag Today Z76.89 - Persons encountering health services in other specified circumstances Syphilis Screen Today Z76.89 - Persons encountering health services in other specified circumstances CT abdomen w IV con Today K86.89 - Other specified diseases of pancreas Referrals Gastroenterology Referral K86.89 - Other specified diseases of pancreas Lung Cancer Screening Referral F17.200 - Nicotine dependence, unspecified, uncomplicated Medications: Changed From pantoprazole 40 mg PO BID To pantoprazole 40 mg PO BID 180 tabs 3RF 90 days From sucralfate 1 g PO TID To sucralfate 1 g PO TID 270 tabs 3RF 90 days Refilled budesonide-formoterol 160-4.5 mcg/actuation (Symbicort) 2 puffs inhalation BID 10.2 grams 4RF Patient Instructions: - Continue your current medications as directed. - We will refill your pantoprazole and sucralfate; start taking them as prescribed. - Quit smoking immediately for your lung health; even one a day is too many. - Follow up with gastroenterology for your pancreatic lesion. - We will perform a CT scan to look at your pancreas more closely. - Complete all lab work drawn and expect results soon. - Contact us if you experience new symptoms or worsening of any existing ones. - Attend your stress test appointment to check heart health. - Obtain past medical records for us to provide better pain management for your back.
[2025-05-25 13:14] VITALS: BP 138/78; PULSE 85; RESP 18; TEMP 36.6; O2SAT 95; BMI 28.4
--- OUTSIDE RECORDS SUMMARY | 2025-05-25 14:20 | XMS_ITS | Clinical Summary ---
Author Organization [facility] ity Address [address] [place] [address] Care Team Providers Care Group Underwriter Name Role Phone Unavailable Primary Care Provider Unavailabl e Social History Tobacco Use Types Packs/Day Years Used Date Smoking Tobacco: Never Assessed Sex and Gender Information Value Date Recorded Sex Assigned at Not on file Legal Sex Male 10:08 PM EST Gender Identity Not on file Sexual Orientation Not on file Plan of Treatment Health Maintenance Due Date Last Done Comments DTaP,Tdap,and Td Vaccines (1 - Tdap) 02/01/1987 Hepatitis B Vaccines (1 of 3 - 19+ 3-dose series) 02/01/1987 Pneumococcal Vaccine: 50+ Ye ars (1 of 1 - PCV) 02/01/2018 Zoster Vaccines (1 of 2) 02/01/2018 Depression Screening 08/26/2024 COVID-19 Vaccine ( - 2023-2 5 season) 2025 Influenza Vaccine (#1) 2025 HIB Vaccines Aged Out No longer eligi ble based on patient's age to complete this topic HPV Vaccines Aged Out No longer eligi ble based on patient's age to complete this topic Hepatitis A Vaccines Aged Out No long er eligible based on patient's age to complete this topic IPV Vaccines Aged Out No longer eligi ble based on patient's age to complete this topic MMR Vaccines Aged Out No longer eligi ble based on patient's age to complete this topic Meningococcal ACWY Vaccine Aged Out N o longer eligible based on patient's age to complete this topic Meningococcal B Vaccine Aged Out No l onger eligible based on patient's age to complete this topic RSV Immunization Patients Un tan 20 months Aged Out No longer eligible b ased on patient's age to complete this topic Varicella Vaccines Aged Out No longer eligible based on patient's age to complete this topic
--- OUTSIDE RECORDS SUMMARY | 2025-05-25 14:21 | XMS_ITS | Patient Health Record ---
Author Organization [facility] Address [address] [place] [address] Care Team Providers Care Asp Net Developer Name Role Phone Braden (RETIRED) Erwin CORDOBA Primary Care Provide r Unavailable Brien Zarate Unavailable [phone] Reason For Referral No Information Plan Of Treatment No Information Insurance Providers Payer Name Payer Address Payer Phone Subscriber Number Group Number Insured Name Patient Relationship to Insured Coverage Start Date Coverage End Date [facility] [address] [place] [phone] [id number] LETTY MELENDEZ Self - patient is the insured
== END 2025-05-25 13:36 | disposition home or self-care (01) ==
LOC: HO.HMCHD 13:09
PROVIDERS: PCP Internal Medicine; Visit Provider Student in an Organized Health Care Education/Training Program
DX: I10 Essential (primary) hypertension (principal); I25.10 Atherosclerotic heart disease of native coronary artery without angina pectoris; E78.49 Other hyperlipidemia; F14.10 Cocaine abuse, uncomplicated; I73.9 Peripheral vascular disease, unspecified; K86.89 Other specified diseases of pancreas; K21.9 Gastro-esophageal reflux disease without esophagitis; M48.061 Spinal stenosis, lumbar region without neurogenic claudication; F17.200 Nicotine dependence, unspecified, uncomplicated; F11.91 Opioid use, unspecified, in remission

== ENCOUNTER 2025-05-25 13:08 | Outpatient (REF) | payer MEDICARE, SELFPAY ==
[2025-05-25 13:58] LABS: MANUAL DIFF FLAG NO
[2025-05-25 14:17] LABS: Hematocrit 42.1 % (42.0-52.0); Hemoglobin 14.1 g/dl (14.0-18.0); Imm Gran Abs Auto 0.03 X10*3/uL (0.00-0.03); Imm Gran Pct Auto 0.4 % (0.0-0.4); Lymphocytes Absolute Auto 1.9 X10*3/uL (1.2-4.9); Mean Corpuscular HGB Conc 33.5 g/dl (31.0-36.0); Mean Corpuscular Hemoglobin 28.3 pg (27.0-33.0); Mean Corpuscular Volume 84.5 fL (80.0-98.0); NRBC Abs Auto 0.000 X10*3/uL (0.0-0.012); NRBC Pct Auto 0.0 /100WBC (0.0-0.2); Platelet Count 257 X10*3/uL (160-400); Red Blood Count 4.98 X10*6/uL (4.60-5.80); White Blood Count 7.8 X10*3/uL (4.8-10.8)
[2025-05-25 14:45] LABS: Alanine Aminotransferase 13 U/L (0-40); Albumin Level 4.6 g/dL (3.5-5.0); Alkaline Phosphatase 83 U/L (39-117); Anion Gap 12 (12-20); Aspartate Amino Transferase 37 U/L (5-37); Blood Urea Nitrogen 18 mg/dL (9-16); Calcium 9.5 mg/dL (8.4-10.2); Carbon Dioxide 28 mmol/L (22-29); Chloride 106 mmol/L (96-108); Cholesterol 130 mg/dL (<200); Estimated Glomerular Filt Rate > 60; HDL Cholesterol 39 mg/dL (>40); Potassium 4.3 mmol/L (3.3-5.1); Sodium 142 mmol/L (135-145); Total Protein 8.0 g/dL (6.5-8.0); Triglycerides 125 mg/dL (<150)
[2025-05-26 05:00] LABS: Syphilis Screen Nonreactive (Nonreactive)
[2025-05-26 05:53] LABS: HBS Num1 0.45 mIU/mL (0-7.99); HBc Num1 0.07 S/CO (0.00-0.79); HBsAGNum1 0.29 S/CO (0.00-0.99); HIV Num 1 0.05 S/CO (0.00-0.99); Hepatitis A Antibody IgM 0.17 Index (0-0.79); Hepatitis B Surface Antigen Negative (Negative); ~HepC Num1 0.11 S/CO (0.00-0.79); ~Hepatitis A Antibody IgM Nonreactive (Nonreactive); ~Hepatitis B Surface Antibody NONREACTIVE (Nonreactive); ~Hepatitis C Antibody Nonreactive (Nonreactive)
== END 2025-05-25 13:09 | disposition home or self-care (01) ==
LOC: HO.LAB 13:08
PROVIDERS: PCP Student in an Organized Health Care Education/Training Program; Visit Provider Student in an Organized Health Care Education/Training Program
DX: Z76.89 Persons encountering health services in other specified circumstances (principal); I25.10 Atherosclerotic heart disease of native coronary artery without angina pectoris; I10 Essential (primary) hypertension; E78.49 Other hyperlipidemia; F14.10 Cocaine abuse, uncomplicated; I73.9 Peripheral vascular disease, unspecified; K86.89 Other specified diseases of pancreas; K21.9 Gastro-esophageal reflux disease without esophagitis; M48.061 Spinal stenosis, lumbar region without neurogenic claudication; F11.91 Opioid use, unspecified, in remission; F17.210 Nicotine dependence, cigarettes, uncomplicated; Z79.82 Long term (current) use of aspirin; Z79.899 Other long term (current) drug therapy
CPT/HCPCS: 36415; 80053; 80061; 82306; 83036; 84443; 85025; 86704; 86706; 86709; 86780; 86803; 87340; 87389; 96127; 99202